=== PATIENT | male | born 1995 | race Caucasian/White ===

== ENCOUNTER 2018-05-31 22:58 | Emergency (ER) | payer SELFPAY ==
[~2018-05-31] VITALS: Ht 162.6 cm; Wt 50.9 kg
[2018-05-31 23:01] VITALS: Ht 162.6 cm; Wt 50.9 kg
[2018-06-01 00:17] LABS: HEMATOCRIT 42.7 % (42.0-54.0); HEMOGLOBIN 15.2 g/dL (13.5-17.5); LYMPHOCYTES 22.7 % (15-50); MCH 30.5 pg (26.0-34.0); MCHC 35.6 g/dL (31.0-37.0); MCV 85.7 fL (80.0-100.0); MEAN PLATELET VOLUME 8.9 fL (7.4-10.4); NEUTROPHILS 68.2 % (40-80); PLATELET COUNT 217 10x3/uL (130-400); RBC 4.98 10x6/uL (4.20-6.10); RDW 12.6 % (11.5-14.5); WBC 5.7 10x3/uL (4.8-10.8)
[2018-06-01 00:17] LABS: APPEARANCE CLEAR (CLEAR); BILIRUBIN NEGATIVE (NEGATIVE); COLOR STRAW (YELLOW); GLUCOSE NEGATIVE (NEGATIVE); KETONE NEGATIVE (NEGATIVE); NITRITE NEGATIVE (NEGATIVE); PROTEIN NEGATIVE (NEGATIVE); SPECIFIC GRAVITY 1.005 (1.005-1.020); UROBILINOGEN NORMAL (NORMAL)
[2018-06-01 00:21] LABS: ALBUMIN 4.2 g/dL (3.4-5.0); ALKALINE PHOSPHATASE 51 U/L (46-116); ALT (SGPT) 11 U/L (10-68); AMYLASE - SERUM 60 U/L (25-115); BILIRUBIN - TOTAL 0.49 mg/dL (0.2-1.3); CALC OSMOLALITY 278 mosm/kg (275-300); CALCIUM 8.3 mg/dL (8.5-10.1); CARBON DIOXIDE 29.3 mmol/L (21.0-32.0); CHLORIDE - SERUM 104 mmol/L (98-107); CREATININE - SERUM 0.9 mg/dL (0.6-1.3); GLUCOSE 107 mg/dL (74-106); LIPASE 115 U/L (73-393); POTASSIUM - SERUM 3.5 mmol/L (3.5-5.1); PROTEIN - SERUM 7.2 g/dL (6.4-8.2); SODIUM 141 mmol/L (136-145); UREA NITROGEN 7 mg/dL (7-18); eGFR NON AFRICAN AMERICAN > 90 mL/min (90-120)
[2018-06-01] MEDS ORDERED: IBUPROFEN800 MG PO (00:47)
[2018-06-01] MEDS ORDERED: ACETAMINOPHEN500 M1 PO (00:47)
[2018-06-01] MEDS ORDERED: CYCLOBENZAPRINE10 MG PO (00:47)
[2018-06-01 01:48] VITALS: BP 113/70
== END 2018-06-01 01:48 | disposition home or self-care (01) ==
LOC: D.ER 22:58
PROVIDERS: Family Medicine
DX: R10.9 Unspecified abdominal pain (principal); R07.9 Chest pain, unspecified; R51 Headache; M79.652 Pain in left thigh; M79.1 Myalgia; T14.8XXA Other injury of unspecified body region, initial encounter; V49.9XXA Car occupant (driver) (passenger) injured in unspecified traffic accident, initial encounter; Y93.89 Activity, other specified; Y92.410 Unspecified street and highway as the place of occurrence of the external cause; F17.200 Nicotine dependence, unspecified, uncomplicated

== ENCOUNTER 2019-01-27 18:51 | Emergency (ER) | payer SELFPAY ==
[2018-05-31 23:01] VITALS: BMI 19.2
[~2019-01-27 18:51] MED LIST: ACETAMINOPHEN500 M1 PO; CYCLOBENZAPRINE10 MG PO; IBUPROFEN800 MG PO
== END 2019-01-27 19:05 | disposition left against medical advice (07) ==
LOC: D.ER 18:51
DX: S91.349A Puncture wound with foreign body, unspecified foot, initial encounter (principal)